=== PATIENT | male | born 1965 | race Caucasian/White ===

== ENCOUNTER → 2017-08-18 | Outpatient (CLI) | payer OTHER ==
[~2017-08-18] MED LIST: ATEN-100 PO; CHLO25CA PO; QUET1TAB67 PO; SERT100 PO
== END ==
LOC: CPRE 08:57
PROVIDERS: ATTEND Orthopaedic Surgery Sports Medicine
DX: M16.9 Osteoarthritis of hip, unspecified (principal)

== ENCOUNTER 2017-09-04 05:22 | Inpatient (IN) | payer OTHER ==
[~2017-09-04] VITALS: Ht 177.8 cm; Wt 92.7 kg
[~2017-09-04 05:22] MED LIST changes: -ATEN-100 PO; +ATEN50TA PO; +BACTOIN EACH NARE; -CHLO25CA PO; +DISU1TAB6 PO; +GABA600T PO; +GEMF600T PO; +MELO7.5T4 PO; +PRIL20TA2 PO; -QUET1TAB67 PO; +SERT-129 PO; -SERT100 PO; +TRAM50TA PO; +TRAZ50TA12 PO
[2017-09-04] MEDS ORDERED: METOPROLOL TARTRATE 25 MG TAB PO PRN (05:45)
[2017-09-04] MEDS ORDERED: SODIUM CHLORID 0.9% 500 ML IV PRN (05:45)
[2017-09-04] MEDS ORDERED: CHLORHEXIDINE GLUCONATE 2 % 1 PACK (2 CLOTHS) TOPICAL PRN (05:45)
[2017-09-04] MEDS ORDERED: POVIDONE IODINE 5% (ANTISEPSIS KIT) 4 APPLICATIONS EACH NARE PRN (05:45)
[2017-09-04] MEDS ORDERED: INSULIN HUMAN REGULAR 1,000 UNITS/10 ML VIAL SQ PRN (05:45)
[2017-09-04] MEDS ORDERED: LACTATED RINGER'S 1000 ML IV PRN (05:45)
[2017-09-04] MEDS ORDERED: GENTAMICIN SULFATE 80 MG/2 ML VIAL ONE (05:49)
[2017-09-04] MEDS ORDERED: POVIDONE IODINE 7.5% SCRUB 118 ML BOTTLE TOPICAL SCH (06:00)
[2017-09-04] MEDS ORDERED: VANCOMYCIN 1000 MG/NS 250 ML (for <70 kg) IV SCH ×2 (06:00)
[2017-09-04] MEDS ORDERED: ceFAZolin 2 GM PREMIX 50 ML IV SCH (06:00)
[2017-09-04] MEDS ORDERED: DEXAMETHASONE SOD PHOS 20 MG/5 ML VIAL IV SCH (06:00)
[2017-09-04] MEDS ORDERED: CHLORHEXIDINE GLUCONATE 4% SOLN 120 ML BTL TOPICAL SCH (06:00)
[2017-09-04] MEDS ORDERED: ACETAMINOPHEN 1000 MG/100 ML 100 ML IV ONE (06:33)
[2017-09-04] MEDS ORDERED: ENOX40P SQ (06:44)
[2017-09-04] MEDS ORDERED: ASPI81CH37 CHEW (06:44)
[2017-09-04] MEDS ORDERED: Post-op Orders (for Pharmacy) MISC XX ONE (06:45)
[2017-09-04] MEDS ORDERED: SODIUM CHLORIDE 0.9% FLUSH 5 ML FLUSH IVF PRN (06:45)
[2017-09-04] MEDS ORDERED: MORPHINE SULFATE 4 MG/ML INJ IV PUSH PRN (06:45)
[2017-09-04] MEDS ORDERED: HYDR-3288 PO (06:45)
[2017-09-04] MEDS ORDERED: TRANEXAMIC PERI-ARTICULAR 3,000 MG/NS 100 ML P-ARTICULR SCH ×2 (07:00)
[2017-09-04] MEDS ORDERED: TRANEXAMIC ACID IV SCH (07:00)
[2017-09-04] MEDS ORDERED: EXPAREL PERI-ARTICULAR INJECTION (TOTAL VOL. 60 ML) P-ARTICULR SCH ×2 (07:00)
[2017-09-04] MEDS ORDERED: SODIUM CHLORIDE 0.9% IV SCH (07:00)
[2017-09-04] MEDS ORDERED: BISACODYL 10 MG SUPP RECTAL PRN (08:00)
[2017-09-04] MEDS ORDERED: ONDANSETRON HCL 4 MG/2 ML VIAL IVP PRN (08:00)
[2017-09-04] MEDS ORDERED: ACETAMINOPHEN/HYDROcodone 325 MG/7.5 MG TAB PO PRN (08:00)
[2017-09-04] MEDS ORDERED: ZOLPIDEM TARTRATE 5 MG TAB PO PRN (08:00)
[2017-09-04] MEDS ORDERED: diphenhydrAMINE HCL 50 MG/ML VIAL IV PUSH PRN (08:00)
[2017-09-04] MEDS: SODIUM CHLORIDE 0.9% FLUSH 5 ML FLUSH IVF SCH ×2 (09:00→20:34)
[2017-09-04] MEDS ORDERED: GEMFIBROZIL 600 MG TAB PO SCH (09:00)
[2017-09-04] MEDS ORDERED: DISULFIRAM 250 MG PO SCH (09:00)
[2017-09-04] MEDS: ATENOLOL 50 MG TAB PO SCH (09:00)
[2017-09-04] MEDS: PANTOPRAZOLE SOD 20 MG DELAYED RELEASE TAB PO SCH (09:00)
[2017-09-04] MEDS: SERTRALINE HCL 100 MG TAB PO SCH (09:00)
--- NOTE | 2017-09-04 09:13 | MP ---
cc: MARICARMEN COLON DATE OF SURGERY 09/04/2017 PREOPERATIVE DIAGNOSIS Left hip osteoarthritis. POSTOPERATIVE DIAGNOSES Left hip osteoarthritis. PROCEDURE Left total hip arthroplasty. SURGEON Dr. Maricarmen Colon MOTOR VEHICLE ESCORT DRIVER Howard Jerry PA-C ANESTHESIA General. ESTIMATED BLOOD LOSS 200 cc COMPLICATIONS None. IMPLANTS USED DePuy Corail size 14 Press-Fit high offset femoral stem, size 54 solid pinnacle Gription cup, size 36 mm highly cross-linked neutral polyethylene liner, size 36 mm ceramic head, +12 neck. JUSTIFICATION The patient is a 52-year-old male with a history of severe end-stage osteoarthritis involving the left hip. He has severe disabling pain on standing, walking, ambulation with activities and severe pain at rest. He has failed greater than 3 months of nonoperative conservative treatment to include medications, therapy, ambulatory assistive aids, home exercise program, activity modification. The patient not overweight. X-rays of the left hip reveal severe end-stage [id number] osteoarthritis. There is joint space narrowing, subchondral sclerosis, subchondral cyst, osteophyte formation with superior subluxation. The patient was counseled as to the risks, benefits and alternatives to a total hip arthroplasty. The risks were discussed which include but limited to injury, infection damage to nerves, blood vessels, pain, stiffness, leg length discrepancies, fracture-dislocation, blood clots, pulmonary embolism. The patient's pain is severe; he favored the benefits over the risks. He did wish to proceed with surgery. PROCEDURE IN DETAIL Written consent was obtained. The patient was identified by name, placed supine. General anesthesia was administered as well as 2 grams of IV Ancef and 1 gram of IV vancomycin. The patient was carefully transferred to the [place] table. The right and left feet were placed in the padded traction boots. All bony prominences and pressure points were well padded. The left hip and left lower extremity were prepped and draped using isopropyl alcohol, Hibiclens solution and DuraPrep solution. After time-out was performed, a longitudinal incision was made over the anterolateral aspect of the left hip. The fascial layer was incised. Dissection was carried over tensor fascia niki, beneath the rectus femoris to allow exposure of the anterior hip capsule. A capsulotomy incision was performed. An oscillating saw was used to perform a femoral neck cut. The osteoarthritic femoral head and neck component was removed. The 10 blade scalpel was used to excise the labrum. Sequential reaming began at size 47 and was carried to size 54. Subsequently a solid [place] Gription cup was implanted in approximately 45 degrees of abduction and 10 degrees of anteversion. There was good purchase and fixation after insertion of the cup. A screw hole eliminator was placed followed by the neutral liner. The liner was impacted in place and tested for stability. Attention was turned to the femur where the leg was externally rotated, extended and adducted. The capsule was released off the inner surface the greater trochanter to allow for elevation and lateralization of the femur. A box cutting osteotome was used to gain entrance into the intramedullary canal of the femur. This was followed by canal finder and sequential broaching up to size 14. Calcar planer was used to plane the calcar. Trial head and neck combinations were evaluated and the final components implanted. With the current components the leg could achieve external rotation of 70 degrees in extension, all the way down to the ground without evidence of anterior instability. No evidence of impingement with passive range of motion of the hip and fluoroscopic imaging showed appropriate implantation of components. The surgical wound was thoroughly irrigated with sterile saline pulse lavage antibiotic impregnated solution. The fascial layer was closed with #1 Vicryl suture, the subcutaneous layer with 2-0 Vicryl suture. The skin was closed with Dermabold. Sterile dressings were applied. The patient tolerated the procedure well, no intraoperative complications noted. Howard Jerry, physician photography assistant certified, was present during the entire procedure to include patient positioning and the procedure itself. The medical necessity of a physician photography assistant was indicated in this case due to the complexity of the procedure. He assisted with appropriate manipulation of the leg and also retraction of muscle, tendon and neurovascular structures. He assisted with preparation of bone and also implementation of the prosthetic replacement. MD RYAN Camargo/MALIKA /8:46 AM 8:53 AM
--- NOTE | 2017-09-04 09:13 | MP ---
cc: MARICARMEN COLON DATE OF SURGERY 09/04/2017 PREOPERATIVE DIAGNOSIS Left hip osteoarthritis. POSTOPERATIVE DIAGNOSES Left hip osteoarthritis. PROCEDURE Left total hip arthroplasty. SURGEON Dr. Maricarmen Colon LIFT TEAM TECHNICIAN Howard Jerry PA-C ANESTHESIA General. ESTIMATED BLOOD LOSS 200 cc COMPLICATIONS None. IMPLANTS USED DePuy Corail size 14 Press-Fit high offset femoral stem, size 54 solid pinnacle Gription cup, size 36 mm highly cross-linked neutral polyethylene liner, size 36 mm ceramic head, +12 neck. JUSTIFICATION The patient is a 52-year-old male with a history of severe end-stage osteoarthritis involving the left hip. He has severe disabling pain on standing, walking, ambulation with activities and severe pain at rest. He has failed greater than 3 months of nonoperative conservative treatment to include medications, therapy, ambulatory assistive aids, home exercise program, activity modification. The patient not overweight. X-rays of the left hip reveal severe end-stage [id number]-cosb osteoarthritis. There is joint space narrowing, subchondral sclerosis, subchondral cyst, osteophyte formation with superior subluxation. The patient was counseled as to the risks, benefits and alternatives to a total hip arthroplasty. The risks were discussed which include but limited to injury, infection damage to nerves, blood vessels, pain, stiffness, leg length discrepancies, fracture-dislocation, blood clots, pulmonary embolism. The patient's pain is severe; he favored the benefits over the risks. He did wish to proceed with surgery. PROCEDURE IN DETAIL Written consent was obtained. The patient was identified by name, placed supine. General anesthesia was administered as well as 2 grams of IV Ancef and 1 gram of IV vancomycin. The patient was carefully transferred to the [place] table. The right and left feet were placed in the padded traction boots. All bony prominences and pressure points were well padded. The left hip and left lower extremity were prepped and draped using isopropyl alcohol, Hibiclens solution and DuraPrep solution. After time-out was performed, a longitudinal incision was made over the anterolateral aspect of the left hip. The fascial layer was incised. Dissection was carried over tensor fascia niki, beneath the rectus femoris to allow exposure of the anterior hip capsule. A capsulotomy incision was performed. An oscillating saw was used to perform a femoral neck cut. The osteoarthritic femoral head and neck component was removed. The 10 blade scalpel was used to excise the labrum. Sequential reaming began at size 47 and was carried to size 54. Subsequently a solid [place] Gription cup was implanted in approximately 45 degrees of abduction and 10 degrees of anteversion. There was good purchase and fixation after insertion of the cup. A screw hole eliminator was placed followed by the neutral liner. The liner was impacted in place and tested for stability. Attention was turned to the femur where the leg was externally rotated, extended and adducted. The capsule was released off the inner surface the greater trochanter to allow for elevation and lateralization of the femur. A box cutting osteotome was used to gain entrance into the intramedullary canal of the femur. This was followed by canal finder and sequential broaching up to size 14. Calcar planer was used to plane the calcar. Trial head and neck combinations were evaluated and the final components implanted. With the current components the leg could achieve external rotation of 70 degrees in extension, all the way down to the ground without evidence of anterior instability. No evidence of impingement with passive range of motion of the hip and fluoroscopic imaging showed appropriate implantation of components. The surgical wound was thoroughly irrigated with sterile saline pulse lavage antibiotic impregnated solution. The fascial layer was closed with #1 Vicryl suture, the subcutaneous layer with 2-0 Vicryl suture. The skin was closed with Dermabold. Sterile dressings were applied. The patient tolerated the procedure well, no intraoperative complications noted. Howard Jerry, physician assistant head cashier certified, was present during the entire procedure to include patient positioning and the procedure itself. The medical necessity of a physician assistant head cashier was indicated in this case due to the complexity of the procedure. He assisted with appropriate manipulation of the leg and also retraction of muscle, tendon and neurovascular structures. He assisted with preparation of bone and also implementation of the prosthetic replacement. MD RYAN Camargo/MALIKA /8:46 AM 8:53 AM
--- NOTE | 2017-09-04 09:13 | MP ---
cc: MARICARMEN COLON DATE OF SURGERY 09/04/2017 PREOPERATIVE DIAGNOSIS Left hip osteoarthritis. POSTOPERATIVE DIAGNOSES Left hip osteoarthritis. PROCEDURE Left total hip arthroplasty. SURGEON Dr. Maricarmen Colon BAND SAW RUNNER Howard Jerry PA-C ANESTHESIA General. ESTIMATED BLOOD LOSS 200 cc COMPLICATIONS None. IMPLANTS USED DePuy Corail size 14 Press-Fit high offset femoral stem, size 54 solid pinnacle Gription cup, size 36 mm highly cross-linked neutral polyethylene liner, size 36 mm ceramic head, +12 neck. JUSTIFICATION The patient is a 52-year-old male with a history of severe end-stage osteoarthritis involving the left hip. He has severe disabling pain on standing, walking, ambulation with activities and severe pain at rest. He has failed greater than 3 months of nonoperative conservative treatment to include medications, therapy, ambulatory assistive aids, home exercise program, activity modification. The patient not overweight. X-rays of the left hip reveal severe end-stage [id number] osteoarthritis. There is joint space narrowing, subchondral sclerosis, subchondral cyst, osteophyte formation with superior subluxation. The patient was counseled as to the risks, benefits and alternatives to a total hip arthroplasty. The risks were discussed which include but limited to injury, infection damage to nerves, blood vessels, pain, stiffness, leg length discrepancies, fracture-dislocation, blood clots, pulmonary embolism. The patient's pain is severe; he favored the benefits over the risks. He did wish to proceed with surgery. PROCEDURE IN DETAIL Written consent was obtained. The patient was identified by name, placed supine. General anesthesia was administered as well as 2 grams of IV Ancef and 1 gram of IV vancomycin. The patient was carefully transferred to the [place] table. The right and left feet were placed in the padded traction boots. All bony prominences and pressure points were well padded. The left hip and left lower extremity were prepped and draped using isopropyl alcohol, Hibiclens solution and DuraPrep solution. After time-out was performed, a longitudinal incision was made over the anterolateral aspect of the left hip. The fascial layer was incised. Dissection was carried over tensor fascia niki, beneath the rectus femoris to allow exposure of the anterior hip capsule. A capsulotomy incision was performed. An oscillating saw was used to perform a femoral neck cut. The osteoarthritic femoral head and neck component was removed. The 10 blade scalpel was used to excise the labrum. Sequential reaming began at size 47 and was carried to size 54. Subsequently a solid [place] Gription cup was implanted in approximately 45 degrees of abduction and 10 degrees of anteversion. There was good purchase and fixation after insertion of the cup. A screw hole eliminator was placed followed by the neutral liner. The liner was impacted in place and tested for stability. Attention was turned to the femur where the leg was externally rotated, extended and adducted. The capsule was released off the inner surface the greater trochanter to allow for elevation and lateralization of the femur. A box cutting osteotome was used to gain entrance into the intramedullary canal of the femur. This was followed by canal finder and sequential broaching up to size 14. Calcar planer was used to plane the calcar. Trial head and neck combinations were evaluated and the final components implanted. With the current components the leg could achieve external rotation of 70 degrees in extension, all the way down to the ground without evidence of anterior instability. No evidence of impingement with passive range of motion of the hip and fluoroscopic imaging showed appropriate implantation of components. The surgical wound was thoroughly irrigated with sterile saline pulse lavage antibiotic impregnated solution. The fascial layer was closed with #1 Vicryl suture, the subcutaneous layer with 2-0 Vicryl suture. The skin was closed with Dermabold. Sterile dressings were applied. The patient tolerated the procedure well, no intraoperative complications noted. Howard Jerry, physician gynecological assistant certified, was present during the entire procedure to include patient positioning and the procedure itself. The medical necessity of a physician gynecological assistant was indicated in this case due to the complexity of the procedure. He assisted with appropriate manipulation of the leg and also retraction of muscle, tendon and neurovascular structures. He assisted with preparation of bone and also implementation of the prosthetic replacement. MD RYAN Camargo/MALIKA /8:46 AM 8:53 AM
[2017-09-04] MEDS ORDERED: DO NOT ADM ANY ANTICOAGULANT DRUGS PRN (09:30)
[2017-09-04] MEDS: SODIUM CHLOR 0.9% 1000 ML INJ 1,000 ML IV SCH ×2 (09:33→18:00)
[2017-09-04] MEDS ORDERED: *morphine SULFATE 8 MG/ML PERIprocedure ONLY ONE (09:36)
--- NOTE | 2017-09-04 09:46 | RADRPT ---
EXAM DATE/TIME: 09/04/2017 07:26 [facility] COMPARISON: No previous studies available for comparison. INDICATIONS : Left total hip replacement. MEDICAL HISTORY : None. SURGICAL HISTORY : None. ENCOUNTER: Initial ACUITY: 1 day PAIN SCORE: Non-responsive. LOCATION: Left hip. FINDINGS: Examination of the hip demonstrates total hip arthroplasty in satisfactory position. The alignment is anatomic. CONCLUSION: Post surgical changes as above. John Lam MD on September 04, 2017 at 9:43 Board Certified Radiologist. This report was verified electronically.
--- NOTE | 2017-09-04 09:58 | RADRPT ---
EXAM DATE/TIME: 09/04/2017 09:17 [facility] COMPARISON: No previous studies available for comparison. INDICATIONS : Post op. MEDICAL HISTORY : None. SURGICAL HISTORY : Orif left hip ENCOUNTER: Initial ACUITY: 1 day PAIN SCORE: 5/10 LOCATION: Left anterior hip FINDINGS: The patient is status post a total hip arthroplasty with a bipolar prosthesis. Prosthesis is well-sea eren. Alignment is anatomic. A fracture is not appreciated. CONCLUSION: Anatomic alignment. Gabriel Garcia MD FACR Board Certified Radiologist. This report was verified electronically.
--- NOTE | 2017-09-04 09:58 | RADRPT ---
EXAM DATE/TIME: 09/04/2017 09:17 [facility] COMPARISON: No previous studies available for comparison. INDICATIONS : Post op. MEDICAL HISTORY : None. SURGICAL HISTORY : Orif left hip ENCOUNTER: Initial ACUITY: 1 day PAIN SCORE: 5/10 LOCATION: Left anterior hip FINDINGS: The patient is status post a total hip arthroplasty with a bipolar prosthesis. Prosthesis is well-sea eren. Alignment is anatomic. A fracture is not appreciated. CONCLUSION: Anatomic alignment. aGbriel Garcia MD FACR Board Certified Radiologist. This report was verified electronically.
[2017-09-04 10:15] VITALS: BP 125/77; PULSE 92; RESP 18; TEMP 96.4; O2SAT 97
--- NOTE | 2017-09-04 11:24 | PD.CONS ---
HPI Service [facility] Consult Requested By Dr. Orta Reason for Consult post-op medical management Primary Care Physician Soni Zayas MD Diagnoses: History of Present Illness This is a 52 year old male patient with a past medical history which includes HTN, borderline personality disorder and OA of left hip. Patient is post left total hip arthroplasty anterior approach with Dr. Orta 09/04/2017. We have been consulted for assistance with postoperative medical management. Patient evaluated reports tolerable postoperative pain left lower extremity offers no other specific complaints at this time. Patient denies chest pain, shortness of breath, nausea, vomiting, diarrhea, constipation, fevers or chills. Patient is able wiggle toes LLE. Review of Systems Constitutional: DENIES: Fatigue, Fever, Chills Eyes: DENIES: Diplopia, Vision loss, Double Vision Respiratory: DENIES: Cough, Sputum production, Shortness of breath Cardiovascular: DENIES: Chest pain, Palpitations, Dyspnea on Exertion, Lower Extremity Edema Gastrointestinal: DENIES: Abdominal pain, Constipation, Diarrhea Musculoskeletal: COMPLAINS OF: Joint pain, Stiffness, Joint Swelling (post op left hip) Neurologic: DENIES: Abnormal gait, Headache, Localized weakness, Speech Problems Psychiatric: DENIES: Anxiety, Confusion, Depression Past Family Social History Past Medical History HTN, borderline personality disorder, depression and OA of left hip ETOH abuse last use 2014 Past Surgical History Left total hip arthroplasty anterior approach with Dr. Orta 09/04/2017 Right inguinal hernia repair Lasik eye surgery tonsillectomy Reported Medications [place] (Hydrocodone-Acetaminophen) 7.5-325 mg Tab 1-2 Tab PO Q6H PRN Aspirin Low Dose (Aspirin) 81 Mg Chew 81 Mg CHEW BID 30 Days Lovenox Inj (Enoxaparin Sodium) 40 Mg/0.4 Ml Syr 40 Mg SQ DAILY Tramadol (Tramadol HCl) 50 Mg Tab 50 Mg PO Q8H PRN Bactroban Nasal Oint (Mupirocin Nasal Oint) 2% Oint 1 Applic EACH NARE BID For 5 days. Gabapentin 600 Mg Tab 600 Mg PO TID Trazodone (Trazodone HCl) 50 Mg Tab 50 Mg PO HS Prilosec (Omeprazole Magnesium) 20 Mg Tab 1 Tab PO DAILY Disulfiram 250 Mg Tab 250 Mg PO DAILY Atenolol 50 Mg Tab 50 Mg PO DAILY Sertraline (Sertraline HCl) 100 Mg Tab 100 Mg PO DAILY Gemfibrozil 600 Mg Tab 600 Mg PO DAILY Take 30 minutes prior to breakfast and dinner. Allergies: Coded Allergies: No Known Allergies (Verified , 09/04/17) Active Ordered Medications Current Medications Medications (Trade) Dose Ordered Sig/Mamta Route Start Time Stop Time Status Last Admin Lactated Ringer's 1,000 ml @ 30 mls/hr Q24H PRN IV 09/04/17 05:45 09/07/17 05:44 09/04/17 06:15 Sodium Chloride 500 ml @ 30 mls/hr [id number] PRN IV 09/04/17 05:45 09/07/17 05:44 (Lopressor) 25 mg PUMPER GAUGER PRN PO 09/04/17 05:45 09/07/17 05:44 (Betadine 5% Antisepsis Kit) 1 applic PUMPER GAUGER PRN EACH NARE 09/04/17 05:45 09/07/17 05:44 09/04/17 06:30 (Chlorhexidine 2% Cloth) 3 pack PUMPER GAUGER PRN TOPICAL 09/04/17 05:45 09/07/17 05:44 09/04/17 06:00 (NovoLIN R INJ) See Protocol Table ... PUMPER GAUGER PRN SQ 09/04/17 05:45 09/07/17 05:44 (Betadine 7.5% Scrub) 1 applic ONCE TOPICAL 09/04/17 06:00 09/07/17 05:59 (Hibiclens 4% Top Soln) 1 applic ONCE TOPICAL 09/04/17 06:00 09/07/17 05:59 09/04/17 06:00 Cefazolin Sodium/ Dextrose 50 ml @ 100 mls/hr PUMPER GAUGER IV 09/04/17 06:00 09/07/17 05:59 09/04/17 06:30 Vancomycin HCl 1000 mg/Sodium Chloride 250 ml @ 250 mls/hr PUMPER GAUGER IV 09/04/17 06:00 09/07/17 05:59 09/04/17 06:45 Tranexamic Acid 1327.5 mg/Sodium Chloride 113.275 ml @ 200 mls/ hr ONCE IV 09/04/17 07:00 09/04/17 13:00 09/04/17 07:02 Bupivacaine Liposome 20 ml/ Sodium Chloride 60 ml @ 120 mls/hr ONCE P-ARTICULR 09/04/17 07:00 09/04/17 13:00 09/04/17 07:31 Tranexamic Acid 3000 mg/Sodium Chloride 130 ml @ 260 mls/hr ONCE P-ARTICULR 09/04/17 07:00 09/04/17 13:00 09/04/17 07:31 (Decadron Inj) 10 mg PUMPER GAUGER IV 09/04/17 06:00 09/04/17 23:59 09/04/17 06:23 (Tenormin) 50 mg DAILY PO 09/04/17 09:00 (Neurontin) 600 mg TID PO 09/04/17 09:00 (Lopid) 600 mg DAILY PO 09/04/17 09:00 (Zoloft) 100 mg DAILY PO 09/04/17 09:00 (Desyrel) 50 mg HS PO 09/04/17 21:00 Patient Own Medication PT OWN MED: DISULFI... DAILY PO 09/04/17 09:00 Future Hold (Protonix) 20 mg DAILY PO 09/04/17 09:00 Sodium Chloride 1,000 ml @ 100 mls/hr Q10H IV 09/04/17 08:00 09/04/17 09:33 (NS Flush) 2 ml UNSCH PRN IVF 09/04/17 06:45 (NS Flush) 2 ml BID IVF 09/04/17 09:00 Cefazolin Sodium 1000 mg/Sodium Chloride 100 ml @ 200 mls/hr Q6H IV 09/04/17 12:00 09/05/17 00:29 (Lovenox Inj) 40 mg Q24H SQ 09/05/17 08:15 09/14/17 08:16 (Morphine Inj) 3 mg Q3H PRN IV PUSH 09/04/17 06:45 ([place] 7.5-325 Mg) 1 tab Q4H PRN PO 09/04/17 08:00 ([place] 7.5-325 Mg) 2 tab Q4H PRN PO 09/04/17 08:00 (Theragran M Tab) 1 tab BID PO 09/05/17 21:00 11/04/17 20:59 (Zofran Inj) 4 mg Q6H PRN IVP 09/04/17 08:00 (Colace) 100 mg BID PO 09/05/17 21:00 (Ambien) 5 mg HS PRN PO 09/04/17 08:00 (Dulcolax Supp) 10 mg DAILY PRN RECTAL 09/04/17 08:00 (Benadryl Inj) 25 mg Q6H PRN IV PUSH 09/04/17 08:00 Miscellaneous Information ALL NURSING DEPARTME... UNSCH PRN .XX 09/04/17 09:30 09/05/17 09:29 Family History Patient is adopted Social History hx of ETOH abuse last use 2014 denies tobacco use denies illicit drug use Physical Exam Vital Signs Vital Signs Date Time Temp Pulse Resp B/P (MAP) Pulse Ox O2 Delivery O2 Flow Rate FiO2 09/04/17 10:15 96.4 92 18 125/77 (93) 97 09/04/17 09:56 98.0 86 14 125/78 (94) 94 Room Air 09/04/17 09:45 85 15 124/76 (92) 94 Room Air 09/04/17 09:30 80 18 120/74 (89) 95 Room Air 09/04/17 09:15 97.9 84 20 126/81 (96) 98 Room Air 09/04/17 06:09 97.8 76 20 121/91 (101) 99 Physical Exam GENERAL: This is a well-nourished, well-developed patient, in no apparent distress. SKIN: post-op dressing left anterior hip dry and intact HEAD: Atraumatic. Normocephalic. No temporal or scalp tenderness. EYES: Extraocular motions intact. No scleral icterus. No injection or drainage. CARDIOVASCULAR: Regular rate and rhythm RESPIRATORY: Clear to auscultation. Breath sounds equal bilaterally. GASTROINTESTINAL: Abdomen soft, non-tender, nondistended. No hepato-splenomegaly , or palpable masses. No guarding. MUSCULOSKELETAL: Extremities without clubbing, cyanosis, or edema. No joint tenderness, effusion, or edema noted. No calf tenderness. Negative Homans sign bilaterally. NEUROLOGICAL: Awake and alert. Motor and sensory grossly within normal limit, with the exception of post-op LLE. Normal speech. Imaging Last Impressions Hip and Pelvis X-Ray 09/04/17 0642 Signed Impressions: Service Date/Time: Monday, September 04, 2017 09:17 - CONCLUSION: Anatomic alignment. Gabriel Garcia MD Hip X-Ray 09/04/17 0000 Signed Impressions: Service Date/Time: Monday, September 04, 2017 07:26 - CONCLUSION: Post surgical changes as above. John Lam MD Assessment and Plan Problem List: (1) Primary localized osteoarthrosis, lower leg ICD Codes: M17.10 - Unilateral primary osteoarthritis, unspecified knee Plan: OA left hip S/P left total hips arthroplasty 09/04/[address] Orta Patient on Lovenox for anticoagulation Pain medication as needed PT HTN Continue patient home Atenolol monitor trend GERD continue home Prilosec Borderline personality disorder Continue patient's home Sertraline and trazodone Hx of ETOH use continue home Disulfiram DVT prophylaxis with Lovenox Assessment and Plan Patient examined. Assessment and plan formulated with Amirah Drummond PA-C. I agree with the above. Amirah Drummond Sep 04, 2017 11:24 Camden Rosen MD Sep 04, 2017 14:16
--- NOTE | 2017-09-04 11:24 | PD.CONS ---
HPI Service [facility] Hospitalists Consult Requested By Dr. Orta Reason for Consult post-op medical management Primary Care Physician Soni Zayas MD Diagnoses: History of Present Illness This is a 52 year old male patient with a past medical history which includes HTN, borderline personality disorder and OA of left hip. Patient is post left total hip arthroplasty anterior approach with Dr. Orta 09/04/2017. We have been consulted for assistance with postoperative medical management. Patient evaluated reports tolerable postoperative pain left lower extremity offers no other specific complaints at this time. Patient denies chest pain, shortness of breath, nausea, vomiting, diarrhea, constipation, fevers or chills. Patient is able wiggle toes LLE. Review of Systems Constitutional: DENIES: Fatigue, Fever, Chills Eyes: DENIES: Diplopia, Vision loss, Double Vision Respiratory: DENIES: Cough, Sputum production, Shortness of breath Cardiovascular: DENIES: Chest pain, Palpitations, Dyspnea on Exertion, Lower Extremity Edema Gastrointestinal: DENIES: Abdominal pain, Constipation, Diarrhea Musculoskeletal: COMPLAINS OF: Joint pain, Stiffness, Joint Swelling (post op left hip) Neurologic: DENIES: Abnormal gait, Headache, Localized weakness, Speech Problems Psychiatric: DENIES: Anxiety, Confusion, Depression Past Family Social History Past Medical History HTN, borderline personality disorder, depression and OA of left hip ETOH abuse last use 2014 Past Surgical History Left total hip arthroplasty anterior approach with Dr. Orta 09/04/2017 Right inguinal hernia repair Lasik eye surgery tonsillectomy Reported Medications [place] (Hydrocodone-Acetaminophen) 7.5-325 mg Tab 1-2 Tab PO Q6H PRN Aspirin Low Dose (Aspirin) 81 Mg Chew 81 Mg CHEW BID 30 Days Lovenox Inj (Enoxaparin Sodium) 40 Mg/0.4 Ml Syr 40 Mg SQ DAILY Tramadol (Tramadol HCl) 50 Mg Tab 50 Mg PO Q8H PRN Bactroban Nasal Oint (Mupirocin Nasal Oint) 2% Oint 1 Applic EACH NARE BID For 5 days. Gabapentin 600 Mg Tab 600 Mg PO TID Trazodone (Trazodone HCl) 50 Mg Tab 50 Mg PO HS Prilosec (Omeprazole Magnesium) 20 Mg Tab 1 Tab PO DAILY Disulfiram 250 Mg Tab 250 Mg PO DAILY Atenolol 50 Mg Tab 50 Mg PO DAILY Sertraline (Sertraline HCl) 100 Mg Tab 100 Mg PO DAILY Gemfibrozil 600 Mg Tab 600 Mg PO DAILY Take 30 minutes prior to breakfast and dinner. Allergies: Coded Allergies: No Known Allergies (Verified , 09/04/17) Active Ordered Medications Current Medications Medications (Trade) Dose Ordered Sig/Mamta Route Start Time Stop Time Status Last Admin Lactated Ringer's 1,000 ml @ 30 mls/hr Q24H PRN IV 09/04/17 05:45 09/07/17 05:44 09/04/17 06:15 Sodium Chloride 500 ml @ 30 mls/hr [id number] PRN IV 09/04/17 05:45 09/07/17 05:44 (Lopressor) 25 mg PARTNERSHIP MANAGER PRN PO 09/04/17 05:45 09/07/17 05:44 (Betadine 5% Antisepsis Kit) 1 applic PARTNERSHIP MANAGER PRN EACH NARE 09/04/17 05:45 09/07/17 05:44 09/04/17 06:30 (Chlorhexidine 2% Cloth) 3 pack PARTNERSHIP MANAGER PRN TOPICAL 09/04/17 05:45 09/07/17 05:44 09/04/17 06:00 (NovoLIN R INJ) See Protocol Table ... PARTNERSHIP MANAGER PRN SQ 09/04/17 05:45 09/07/17 05:44 (Betadine 7.5% Scrub) 1 applic ONCE TOPICAL 09/04/17 06:00 09/07/17 05:59 (Hibiclens 4% Top Soln) 1 applic ONCE TOPICAL 09/04/17 06:00 09/07/17 05:59 09/04/17 06:00 Cefazolin Sodium/ Dextrose 50 ml @ 100 mls/hr PARTNERSHIP MANAGER IV 09/04/17 06:00 09/07/17 05:59 09/04/17 06:30 Vancomycin HCl 1000 mg/Sodium Chloride 250 ml @ 250 mls/hr PARTNERSHIP MANAGER IV 09/04/17 06:00 09/07/17 05:59 09/04/17 06:45 Tranexamic Acid 1327.5 mg/Sodium Chloride 113.275 ml @ 200 mls/ hr ONCE IV 09/04/17 07:00 09/04/17 13:00 09/04/17 07:02 Bupivacaine Liposome 20 ml/ Sodium Chloride 60 ml @ 120 mls/hr ONCE P-ARTICULR 09/04/17 07:00 09/04/17 13:00 09/04/17 07:31 Tranexamic Acid 3000 mg/Sodium Chloride 130 ml @ 260 mls/hr ONCE P-ARTICULR 09/04/17 07:00 09/04/17 13:00 09/04/17 07:31 (Decadron Inj) 10 mg PARTNERSHIP MANAGER IV 09/04/17 06:00 09/04/17 23:59 09/04/17 06:23 (Tenormin) 50 mg DAILY PO 09/04/17 09:00 (Neurontin) 600 mg TID PO 09/04/17 09:00 (Lopid) 600 mg DAILY PO 09/04/17 09:00 (Zoloft) 100 mg DAILY PO 09/04/17 09:00 (Desyrel) 50 mg HS PO 09/04/17 21:00 Patient Own Medication PT OWN MED: DISULFI... DAILY PO 09/04/17 09:00 Future Hold (Protonix) 20 mg DAILY PO 09/04/17 09:00 Sodium Chloride 1,000 ml @ 100 mls/hr Q10H IV 09/04/17 08:00 09/04/17 09:33 (NS Flush) 2 ml UNSCH PRN IVF 09/04/17 06:45 (NS Flush) 2 ml BID IVF 09/04/17 09:00 Cefazolin Sodium 1000 mg/Sodium Chloride 100 ml @ 200 mls/hr Q6H IV 09/04/17 12:00 09/05/17 00:29 (Lovenox Inj) 40 mg Q24H SQ 09/05/17 08:15 09/14/17 08:16 (Morphine Inj) 3 mg Q3H PRN IV PUSH 09/04/17 06:45 ([place] 7.5-325 Mg) 1 tab Q4H PRN PO 09/04/17 08:00 ([place] 7.5-325 Mg) 2 tab Q4H PRN PO 09/04/17 08:00 (Theragran M Tab) 1 tab BID PO 09/05/17 21:00 11/04/17 20:59 (Zofran Inj) 4 mg Q6H PRN IVP 09/04/17 08:00 (Colace) 100 mg BID PO 09/05/17 21:00 (Ambien) 5 mg HS PRN PO 09/04/17 08:00 (Dulcolax Supp) 10 mg DAILY PRN RECTAL 09/04/17 08:00 (Benadryl Inj) 25 mg Q6H PRN IV PUSH 09/04/17 08:00 Miscellaneous Information ALL NURSING DEPARTME... UNSCH PRN .XX 09/04/17 09:30 09/05/17 09:29 Family History Patient is adopted Social History hx of ETOH abuse last use 2014 denies tobacco use denies illicit drug use Physical Exam Vital Signs Vital Signs Date Time Temp Pulse Resp B/P (MAP) Pulse Ox O2 Delivery O2 Flow Rate FiO2 09/04/17 10:15 96.4 92 18 125/77 (93) 97 09/04/17 09:56 98.0 86 14 125/78 (94) 94 Room Air 09/04/17 09:45 85 15 124/76 (92) 94 Room Air 09/04/17 09:30 80 18 120/74 (89) 95 Room Air 09/04/17 09:15 97.9 84 20 126/81 (96) 98 Room Air 09/04/17 06:09 97.8 76 20 121/91 (101) 99 Physical Exam GENERAL: This is a well-nourished, well-developed patient, in no apparent distress. SKIN: post-op dressing left anterior hip dry and intact HEAD: Atraumatic. Normocephalic. No temporal or scalp tenderness. EYES: Extraocular motions intact. No scleral icterus. No injection or drainage. CARDIOVASCULAR: Regular rate and rhythm RESPIRATORY: Clear to auscultation. Breath sounds equal bilaterally. GASTROINTESTINAL: Abdomen soft, non-tender, nondistended. No hepato-splenomegaly , or palpable masses. No guarding. MUSCULOSKELETAL: Extremities without clubbing, cyanosis, or edema. No joint tenderness, effusion, or edema noted. No calf tenderness. Negative Homans sign bilaterally. NEUROLOGICAL: Awake and alert. Motor and sensory grossly within normal limit, with the exception of post-op LLE. Normal speech. Imaging Last Impressions Hip and Pelvis X-Ray 09/04/17 0642 Signed Impressions: Service Date/Time: Monday, September 04, 2017 09:17 - CONCLUSION: Anatomic alignment. Gabriel Garcia MD Hip X-Ray 09/04/17 0000 Signed Impressions: Service Date/Time: Monday, September 04, 2017 07:26 - CONCLUSION: Post surgical changes as above. John Lam MD Assessment and Plan Problem List: (1) Primary localized osteoarthrosis, lower leg ICD Codes: M17.10 - Unilateral primary osteoarthritis, unspecified knee Plan: OA left hip S/P left total hips arthroplasty 09/04/[address] Orta Patient on Lovenox for anticoagulation Pain medication as needed PT HTN Continue patient home Atenolol monitor trend GERD continue home Prilosec Borderline personality disorder Continue patient's home Sertraline and trazodone Hx of ETOH use continue home Disulfiram DVT prophylaxis with Lovenox Assessment and Plan Patient examined. Assessment and plan formulated with Amirah Drummond PA-C. I agree with the above. Amirah Drummond Sep 04, 2017 11:24 Camden Rosen MD Sep 04, 2017 14:16
--- NOTE | 2017-09-04 11:24 | PD.CONS ---
HPI Service [facility] Hospitalists Consult Requested By Dr. Orta Reason for Consult post-op medical management Primary Care Physician Soni Zayas MD Diagnoses: History of Present Illness This is a 52 year old male patient with a past medical history which includes HTN, borderline personality disorder and OA of left hip. Patient is post left total hip arthroplasty anterior approach with Dr. Orta 09/04/2017. We have been consulted for assistance with postoperative medical management. Patient evaluated reports tolerable postoperative pain left lower extremity offers no other specific complaints at this time. Patient denies chest pain, shortness of breath, nausea, vomiting, diarrhea, constipation, fevers or chills. Patient is able wiggle toes LLE. Review of Systems Constitutional: DENIES: Fatigue, Fever, Chills Eyes: DENIES: Diplopia, Vision loss, Double Vision Respiratory: DENIES: Cough, Sputum production, Shortness of breath Cardiovascular: DENIES: Chest pain, Palpitations, Dyspnea on Exertion, Lower Extremity Edema Gastrointestinal: DENIES: Abdominal pain, Constipation, Diarrhea Musculoskeletal: COMPLAINS OF: Joint pain, Stiffness, Joint Swelling (post op left hip) Neurologic: DENIES: Abnormal gait, Headache, Localized weakness, Speech Problems Psychiatric: DENIES: Anxiety, Confusion, Depression Past Family Social History Past Medical History HTN, borderline personality disorder, depression and OA of left hip ETOH abuse last use 2014 Past Surgical History Left total hip arthroplasty anterior approach with Dr. Orta 09/04/2017 Right inguinal hernia repair Lasik eye surgery tonsillectomy Reported Medications [place] (Hydrocodone-Acetaminophen) 7.5-325 mg Tab 1-2 Tab PO Q6H PRN Aspirin Low Dose (Aspirin) 81 Mg Chew 81 Mg CHEW BID 30 Days Lovenox Inj (Enoxaparin Sodium) 40 Mg/0.4 Ml Syr 40 Mg SQ DAILY Tramadol (Tramadol HCl) 50 Mg Tab 50 Mg PO Q8H PRN Bactroban Nasal Oint (Mupirocin Nasal Oint) 2% Oint 1 Applic EACH NARE BID For 5 days. Gabapentin 600 Mg Tab 600 Mg PO TID Trazodone (Trazodone HCl) 50 Mg Tab 50 Mg PO HS Prilosec (Omeprazole Magnesium) 20 Mg Tab 1 Tab PO DAILY Disulfiram 250 Mg Tab 250 Mg PO DAILY Atenolol 50 Mg Tab 50 Mg PO DAILY Sertraline (Sertraline HCl) 100 Mg Tab 100 Mg PO DAILY Gemfibrozil 600 Mg Tab 600 Mg PO DAILY Take 30 minutes prior to breakfast and dinner. Allergies: Coded Allergies: No Known Allergies (Verified , 09/04/17) Active Ordered Medications Current Medications Medications (Trade) Dose Ordered Sig/Mamta Route Start Time Stop Time Status Last Admin Lactated Ringer's 1,000 ml @ 30 mls/hr Q24H PRN IV 09/04/17 05:45 09/07/17 05:44 09/04/17 06:15 Sodium Chloride 500 ml @ 30 mls/hr [id number] PRN IV 09/04/17 05:45 09/07/17 05:44 (Lopressor) 25 mg NATURAL RESOURCES EXTENSION EDUCATOR PRN PO 09/04/17 05:45 09/07/17 05:44 (Betadine 5% Antisepsis Kit) 1 applic NATURAL RESOURCES EXTENSION EDUCATOR PRN EACH NARE 09/04/17 05:45 09/07/17 05:44 09/04/17 06:30 (Chlorhexidine 2% Cloth) 3 pack NATURAL RESOURCES EXTENSION EDUCATOR PRN TOPICAL 09/04/17 05:45 09/07/17 05:44 09/04/17 06:00 (NovoLIN R INJ) See Protocol Table ... NATURAL RESOURCES EXTENSION EDUCATOR PRN SQ 09/04/17 05:45 09/07/17 05:44 (Betadine 7.5% Scrub) 1 applic ONCE TOPICAL 09/04/17 06:00 09/07/17 05:59 (Hibiclens 4% Top Soln) 1 applic ONCE TOPICAL 09/04/17 06:00 09/07/17 05:59 09/04/17 06:00 Cefazolin Sodium/ Dextrose 50 ml @ 100 mls/hr NATURAL RESOURCES EXTENSION EDUCATOR IV 09/04/17 06:00 09/07/17 05:59 09/04/17 06:30 Vancomycin HCl 1000 mg/Sodium Chloride 250 ml @ 250 mls/hr NATURAL RESOURCES EXTENSION EDUCATOR IV 09/04/17 06:00 09/07/17 05:59 09/04/17 06:45 Tranexamic Acid 1327.5 mg/Sodium Chloride 113.275 ml @ 200 mls/ hr ONCE IV 09/04/17 07:00 09/04/17 13:00 09/04/17 07:02 Bupivacaine Liposome 20 ml/ Sodium Chloride 60 ml @ 120 mls/hr ONCE P-ARTICULR 09/04/17 07:00 09/04/17 13:00 09/04/17 07:31 Tranexamic Acid 3000 mg/Sodium Chloride 130 ml @ 260 mls/hr ONCE P-ARTICULR 09/04/17 07:00 09/04/17 13:00 09/04/17 07:31 (Decadron Inj) 10 mg NATURAL RESOURCES EXTENSION EDUCATOR IV 09/04/17 06:00 09/04/17 23:59 09/04/17 06:23 (Tenormin) 50 mg DAILY PO 09/04/17 09:00 (Neurontin) 600 mg TID PO 09/04/17 09:00 (Lopid) 600 mg DAILY PO 09/04/17 09:00 (Zoloft) 100 mg DAILY PO 09/04/17 09:00 (Desyrel) 50 mg HS PO 09/04/17 21:00 Patient Own Medication PT OWN MED: DISULFI... DAILY PO 09/04/17 09:00 Future Hold (Protonix) 20 mg DAILY PO 09/04/17 09:00 Sodium Chloride 1,000 ml @ 100 mls/hr Q10H IV 09/04/17 08:00 09/04/17 09:33 (NS Flush) 2 ml UNSCH PRN IVF 09/04/17 06:45 (NS Flush) 2 ml BID IVF 09/04/17 09:00 Cefazolin Sodium 1000 mg/Sodium Chloride 100 ml @ 200 mls/hr Q6H IV 09/04/17 12:00 09/05/17 00:29 (Lovenox Inj) 40 mg Q24H SQ 09/05/17 08:15 09/14/17 08:16 (Morphine Inj) 3 mg Q3H PRN IV PUSH 09/04/17 06:45 ([place] 7.5-325 Mg) 1 tab Q4H PRN PO 09/04/17 08:00 ([place] 7.5-325 Mg) 2 tab Q4H PRN PO 09/04/17 08:00 (Theragran M Tab) 1 tab BID PO 09/05/17 21:00 11/04/17 20:59 (Zofran Inj) 4 mg Q6H PRN IVP 09/04/17 08:00 (Colace) 100 mg BID PO 09/05/17 21:00 (Ambien) 5 mg HS PRN PO 09/04/17 08:00 (Dulcolax Supp) 10 mg DAILY PRN RECTAL 09/04/17 08:00 (Benadryl Inj) 25 mg Q6H PRN IV PUSH 09/04/17 08:00 Miscellaneous Information ALL NURSING DEPARTME... UNSCH PRN .XX 09/04/17 09:30 09/05/17 09:29 Family History Patient is adopted Social History hx of ETOH abuse last use 2014 denies tobacco use denies illicit drug use Physical Exam Vital Signs Vital Signs Date Time Temp Pulse Resp B/P (MAP) Pulse Ox O2 Delivery O2 Flow Rate FiO2 09/04/17 10:15 96.4 92 18 125/77 (93) 97 09/04/17 09:56 98.0 86 14 125/78 (94) 94 Room Air 09/04/17 09:45 85 15 124/76 (92) 94 Room Air 09/04/17 09:30 80 18 120/74 (89) 95 Room Air 09/04/17 09:15 97.9 84 20 126/81 (96) 98 Room Air 09/04/17 06:09 97.8 76 20 121/91 (101) 99 Physical Exam GENERAL: This is a well-nourished, well-developed patient, in no apparent distress. SKIN: post-op dressing left anterior hip dry and intact HEAD: Atraumatic. Normocephalic. No temporal or scalp tenderness. EYES: Extraocular motions intact. No scleral icterus. No injection or drainage. CARDIOVASCULAR: Regular rate and rhythm RESPIRATORY: Clear to auscultation. Breath sounds equal bilaterally. GASTROINTESTINAL: Abdomen soft, non-tender, nondistended. No hepato-splenomegaly , or palpable masses. No guarding. MUSCULOSKELETAL: Extremities without clubbing, cyanosis, or edema. No joint tenderness, effusion, or edema noted. No calf tenderness. Negative Homans sign bilaterally. NEUROLOGICAL: Awake and alert. Motor and sensory grossly within normal limit, with the exception of post-op LLE. Normal speech. Imaging Last Impressions Hip and Pelvis X-Ray 09/04/17 0642 Signed Impressions: Service Date/Time: Monday, September 04, 2017 09:17 - CONCLUSION: Anatomic alignment. Gabriel Garcia MD Hip X-Ray 09/04/17 0000 Signed Impressions: Service Date/Time: Monday, September 04, 2017 07:26 - CONCLUSION: Post surgical changes as above. John Lam MD Assessment and Plan Problem List: (1) Primary localized osteoarthrosis, lower leg ICD Codes: M17.10 - Unilateral primary osteoarthritis, unspecified knee Plan: OA left hip S/P left total hips arthroplasty 09/04/[address] Orta Patient on Lovenox for anticoagulation Pain medication as needed PT HTN Continue patient home Atenolol monitor trend GERD continue home Prilosec Borderline personality disorder Continue patient's home Sertraline and trazodone Hx of ETOH use continue home Disulfiram DVT prophylaxis with Lovenox Assessment and Plan Patient examined. Assessment and plan formulated with Amirah Drummond PA-C. I agree with the above. Amirah Drummond Sep 04, 2017 11:24 Camden Rosen MD Sep 04, 2017 14:16
[2017-09-04 11:36] VITALS: O2SAT 96
[2017-09-04] MEDS: GABAPENTIN 300 MG CAP PO SCH ×2 (12:05→17:26)
[2017-09-04 16:00] VITALS: BP 116/75; PULSE 94; RESP 18; TEMP 96.7; O2SAT 98
[2017-09-04] MEDS: ACETAMINOPHEN/HYDROcodone 325 MG/7.5 MG TAB PO PRN ×2 (17:27→21:48)
[2017-09-04 20:00] VITALS: BP 98/57; PULSE 93; RESP 18; TEMP 98; O2SAT 97
[2017-09-04] MEDS ORDERED: traZODone HCL 50 MG TAB PO SCH (21:00)
[2017-09-05 00:07] VITALS: BP 112/64; PULSE 90; RESP 18; TEMP 97.8; O2SAT 100
[2017-09-05] MEDS: SODIUM CHLOR 0.9% 1000 ML INJ 1,000 ML IV SCH (03:03)
[2017-09-05 04:06] VITALS: BP 102/59; PULSE 89; RESP 18; TEMP 97.3; O2SAT 99
[2017-09-05] MEDS: ACETAMINOPHEN/HYDROcodone 325 MG/7.5 MG TAB PO PRN ×3 (04:50→13:20)
[2017-09-05 06:39] LABS: HEMATOCRIT 29.7 % (39.0-51.0); HEMOGLOBIN 10.1 GM/DL (13.0-17.0); MEAN CELL VOLUME 89.7 FL (80.0-100.0); MEAN CORPUSCULAR HEMOGLOBIN 30.6 PG (27.0-34.0); MEAN CORPUSCULAR HGB CONC 34.1 % (32.0-36.0); MEAN PLATELET VOLUME 8.4 FL (7.0-11.0); PLATELET COUNT 195 TH/MM3 (150-450); RED BLOOD COUNT 3.31 MIL/MM3 (4.50-5.90); RED CELL DISTRIBUTION WIDTH 13.8 % (11.6-17.2); WHITE BLOOD COUNT 7.1 TH/MM3 (4.0-11.0)
[2017-09-05] MEDS: ATENOLOL 50 MG TAB PO SCH (07:21)
[2017-09-05] MEDS: PANTOPRAZOLE SOD 20 MG DELAYED RELEASE TAB PO SCH (07:21)
[2017-09-05] MEDS: GABAPENTIN 300 MG CAP PO SCH (07:21)
[2017-09-05] MEDS: SERTRALINE HCL 100 MG TAB PO SCH (07:21)
[2017-09-05 08:00] VITALS: BP 111/63; PULSE 90; RESP 17; TEMP 97.9; O2SAT 97
[2017-09-05] MEDS ORDERED: ENOXAPARIN SODIUM 40 MG/0.4 ML SYRINGE SQ SCH (08:15)
--- NOTE | 2017-09-05 08:22 | PD.ORT.PN ---
Subjective Post Op Day #: 1 Subjective Remarks doing well. pain controlled. thigh sore. Objective Vitals Vital Signs Date Time Temp Pulse Resp B/P (MAP) Pulse Ox O2 Delivery O2 Flow Rate FiO2 09/05/17 08:00 97.9 90 17 111/63 (79) 97 09/05/17 05:59 19 09/05/17 04:06 97.3 89 18 102/59 (73) 99 09/05/17 01:37 Room Air 09/05/17 00:07 97.8 90 18 112/64 (80) 100 09/04/17 20:00 98.0 93 18 98/57 (71) 97 09/04/17 16:00 96.7 94 18 116/75 (89) 98 09/04/17 11:36 96 09/04/17 10:15 96.4 92 18 125/77 (93) 97 09/04/17 09:56 98.0 86 14 125/78 (94) 94 Room Air 09/04/17 09:45 85 15 124/76 (92) 94 Room Air 09/04/17 09:30 80 18 120/74 (89) 95 Room Air 09/04/17 09:15 97.9 84 20 126/81 (96) 98 Room Air I/O 09/04/17 09/04/17 09/04/17 09/05/17 09/05/17 09/05/17 07:00 15:00 23:00 07:00 15:00 23:00 Intake Total 1650 ml 480 ml 340 ml Output Total 450 ml Balance 1200 ml 480 ml 340 ml Intake Oral 600 ml 480 ml 240 ml IV Total 1050 ml 100 ml Output Urine Total 350 ml Estimated Blood Loss 100 ml # Voids 1 6 2 # Bowel Movements 1 1 0 Result Diagram: 09/05/17 0602 Objective Remarks in bed, nad dressing c/d/i neg homans nvi Assessment & Plan Ortho Post Op Day #: 1 Problem List: Assessment and Plan s/p L CATHY wbat daily dressing changes lovenox d/c planning home with [facility] and pt - cleared today rx in chart f/up dr. felipe 2 weeks Nomi Jerry Sep 05, 2017 08:22
--- NOTE | 2017-09-05 08:24 | HHI.FF ---
Face to Face Verification Diagnosis: (1) Primary localized osteoarthrosis, lower leg Physical Therapy Gait training, Safety evaluation, Transfer training, bed to chair Hip: Total hip, Protocol: Left Left LE Weight Bearing: WB as tolerated Nursing RN: 3 days/week x 2 weeks Nursing: Saeed teaching, Dressing changes Dressing Changes: Daily dressing change I have seen patient Socrates Mcghee on 09/05/17. My clinical findings support the need for the requested home health care services because: Limited ability to care for self High risk of falls I certify that my clinical findings support that this patient is homebound because: Post-op weakness Unsteady gait/balance Nomi Jerry Sep 05, 2017 08:24
--- NOTE | 2017-09-05 08:24 | HHI.DCPOC ---
Discharge Care Plan Diagnosis: (1) Primary localized osteoarthrosis, lower leg Your Health Problems Are: Difficulty with ADL Goals to Promote Your Health * To prevent worsening of your condition and complications * To maintain your health at the optimal level Directions to Meet Your Goals Take your medications as prescribed Follow your dietary instruction Follow activity as directed Keep your appointments as scheduled Take your immunizations and boosters as scheduled If your symptoms worsen call your PCP, if no PCP go to Urgent Care Center or Emergency Room Smoking is Dangerous to Your Health. Avoid second hand smoke Call the 24-hour hour crisis hotline for domestic abuse at Nomi Jerry Sep 05, 2017 08:24
--- NOTE | 2017-09-05 08:24 | HHI.DCPOC ---
Discharge Care Plan Diagnosis: (1) Primary localized osteoarthrosis, lower leg Your Health Problems Are: Difficulty with ADL Goals to Promote Your Health * To prevent worsening of your condition and complications * To maintain your health at the optimal level Directions to Meet Your Goals Take your medications as prescribed Follow your dietary instruction Follow activity as directed Keep your appointments as scheduled Take your immunizations and boosters as scheduled If your symptoms worsen call your PCP, if no PCP go to Urgent Care Center or Emergency Room Smoking is Dangerous to Your Health. Avoid second hand smoke Call the 24-hour hour crisis hotline for domestic abuse at Nomi Jerry Sep 05, 2017 08:24
--- NOTE | 2017-09-05 08:24 | HHI.DCPOC ---
Discharge Care Plan Diagnosis: (1) Primary localized osteoarthrosis, lower leg Your Health Problems Are: Difficulty with ADL Goals to Promote Your Health * To prevent worsening of your condition and complications * To maintain your health at the optimal level Directions to Meet Your Goals Take your medications as prescribed Follow your dietary instruction Follow activity as directed Keep your appointments as scheduled Take your immunizations and boosters as scheduled If your symptoms worsen call your PCP, if no PCP go to Urgent Care Center or Emergency Room Smoking is Dangerous to Your Health. Avoid second hand smoke Call the 24-hour hour crisis hotline for domestic abuse at Nomi Jerry Sep 05, 2017 08:24
[2017-09-05] MEDS ORDERED: COMMODE 3-IN-11 MIS (08:26)
[2017-09-05] MEDS ORDERED: WALKER WHEELS/F1 MIS (08:26)
[2017-09-05 10:17] VITALS: O2SAT 98
[2017-09-05 11:53] VITALS: BP 106/57; PULSE 92; RESP 18; TEMP 97.6; O2SAT 98
[2017-09-05] MEDS ORDERED: DOCUSATE SODIUM 100 MG CAP PO SCH (21:00)
[2017-09-05] MEDS ORDERED: MULTIVITAMINS/MINERALS THERAPEUTIC TAB PO SCH (21:00)
--- NOTE | 2017-09-06 09:35 | MD ---
cc: MARICARMEN COLON M.D. ADMISSION DATE: 09/04/2017 DISCHARGE DATE: 09/05/2017 ADMISSION DIAGNOSIS Severe degenerative osteoarthritis left hip. DISCHARGE DIAGNOSIS Severe degenerative osteoarthritis left hip. HISTORY OF PRESENT ILLNESS Mr. Mcghee is a 52-year-old male who presented to the [facility] for evaluation by Dr. Maricarmen Colon regarding his severe and progressive left hip pain. The patient states the pain is a severe, constant aching sensation aggravated by weightbearing activities. The pain is inhibiting his ability to ambulate safely. He states he has no alleviating factors at this point in time although he has tried medications, assistive devices, physical therapy, home exercises and steroid injection without relief of symptoms. He does have x-ray evidence of severe degenerative osteoarthritis of left hip. While in the office the patient was counseled as to his diagnosis and treatment options, the risks, benefits and indications all were all discussed. The patient elected to proceed with surgical intervention to include a left total hip arthroplasty. DATE OF SURGERY 09/04/2017 PROCEDURE PERFORMED Left total hip arthroplasty anterior approach. POSTOP After surgery the patient was admitted to [facility] where he received appropriate medical management, pain control, DVT prophylaxis as well as physical therapy. DISCHARGE Once being discharged from the hospital the patient was cleared to go home where he will receive home health care and home physical therapy. CONDITION ON DISCHARGE He is in stable condition. DISCHARGE INSTRUCTIONS He may weight-bear as tolerated with anterior hip precautions. He is to receive daily dressing changes and has been instructed on appropriate wound care management. DISCHARGE MEDICATIONS He has been provided prescriptions for pain control as well as DVT prophylaxis medication. FOLLOWUP He has also been provided a follow-up appointment in approximately 2 weeks from the date of surgery. The patient has asked appropriate questions which have been answered. The patient has been discharged. Dictated by: Howard Jerry PA-C Maricarmen Colon MD JWM/MALIKA /8:03 AM /9:33 AM
== END 2017-09-05 15:16 | disposition home health service (06) | DRG 470 ==
LOC: HSDI 05:22 → N06A 10:05
PROVIDERS: ADMIT Orthopaedic Surgery Sports Medicine; ATTEND Orthopaedic Surgery Sports Medicine
PROC: 0SRB04A Replacement of Left Hip Joint with Ceramic on Polyethylene Synthetic Substitute, Uncemented, Open Approach (ICD-10-PCS; principal; 2017-09-04 07:31)
DX: M16.12 Unilateral primary osteoarthritis, left hip (principal); I10 Essential (primary) hypertension; F60.3 Borderline personality disorder; K21.9 Gastro-esophageal reflux disease without esophagitis
CPT/HCPCS: 73502; 76000; 85027; 86850; 86900; 86901; 94150; C9290; J0131; J0690; J1100; J1580; J1650; J2270; J3370; J7030; J7050; J7120

== ENCOUNTER 2017-09-13 12:57 | Emergency (ER) | payer OTHER ==
[~2017-09-13] VITALS: Ht 177.8 cm; Wt 84.0 kg
[~2017-09-13 12:57] MED LIST changes: +ASPI81CH6 CHEW; -BACTOIN EACH NARE; +COMMODE 3-IN-11 MIS; +ENOX40P SQ; +HYDR-3288 PO; -MELO7.5T4 PO; -TRAM50TA PO; +WALKER WHEELS/F1 MIS
[2017-09-13 12:58] VITALS: BP 153/99; PULSE 61; RESP 16; TEMP 99.1; O2SAT 98
[2017-09-13 14:02] LABS: AUTOMATED NEUTROPHIL # 6.5 TH/MM3 (1.8-7.7); BASOPHIL # 0.1 TH/MM3 (0-0.2); BASOPHIL % 0.7 % (0.0-2.0); EOSINOPHIL # 0.3 TH/MM3 (0-0.4); HEMATOCRIT 31.6 % (39.0-51.0); HEMO FLAGS DIFF FINAL; LYMPH % 15.9 % (9.0-44.0); LYMPHOCYTE # 1.4 TH/MM3 (1.0-4.8); MEAN CELL VOLUME 90.5 FL (80.0-100.0); MEAN CORPUSCULAR HEMOGLOBIN 30.1 PG (27.0-34.0); MEAN CORPUSCULAR HGB CONC 33.2 % (32.0-36.0); NEUT % 74.4 % (16.0-70.0); PLATELET COUNT 342 TH/MM3 (150-450); RED BLOOD COUNT 3.49 MIL/MM3 (4.50-5.90); RED CELL DISTRIBUTION WIDTH 13.2 % (11.6-17.2); WHITE BLOOD COUNT 8.7 TH/MM3 (4.0-11.0)
[2017-09-13 14:07] VITALS: RESP 18; O2SAT 98
--- NOTE | 2017-09-13 14:08 | RADRPT ---
EXAM DATE/TIME: 09/13/2017 13:49 [place] COMPARISON: No previous studies available for comparison. INDICATIONS : Left leg pain. Status post left hip replacement, 09/04/17. MEDICAL HISTORY : Hypercholesterolemia. Hypertension. UTI. SURGICAL HISTORY : Deviated septum. Left hip replacement. ENCOUNTER: Initial ACUITY: 1 week PAIN SCORE: 4/10 LOCATION: Left leg. TECHNIQUE: Venous ultrasound of the leg was performed from the inguinal ligament to the proximal calf. Real-dante e, color Doppler and spectral tracing, compression and augmentation techniques were used. FINDINGS: There is normal compressibility of the deep venous system from the inguinal region to the proximal ca lf. No echogenic clot is seen in the lumen of the common femoral, femoral, popliteal, and posterior tibial veins. There is a normal response of the venous system to proximal and distal augmentation an d respiration. CONCLUSION: Normal examination. Franklin Davenport MD on September 13, 2017 at 14:06 Board Certified Radiologist. This report was verified electronically.
[2017-09-13 14:11] LABS: APTT (PATIENT) 29.8 SEC (24.3-30.1); INTERNATIONAL NORMALIZED RATIO 0.9 RATIO; PROTHROMBIN TIME - PATIENT 10.1 SEC (9.8-11.6)
[2017-09-13 14:23] LABS: ANION GAP 7 MEQ/L (5-15); AST (GOT) 31 U/L (15-37); BLOOD UREA NITROGEN 10 MG/DL (7-18); CHLORIDE 104 MEQ/L (98-107); GLOMERULAR FILTRATION RATE 112 ML/MIN (>89); MAGNESIUM 1.9 MG/DL (1.5-2.5); POTASSIUM 3.5 MEQ/L (3.5-5.1); SODIUM (NA) 137 MEQ/L (136-145)
--- NOTE | 2017-09-13 14:25 | PD ---
HPI Chief Complaint: Edema Time Seen by Provider: 13:38 Travel History International Travel<30 days: No Contact w/Intl Traveler<30days: No Traveled to known affect area: No History of Present Illness HPI 52-year-old male that presents to the ED for evaluation of left hip pain as well as left leg swelling. Patient has had this for the past 2 days. Per patient he had surgery on the 04 September for a hip replacement. Patient has been doing well since after the surgery. He used to be on Lovenox and states compliance with this for about a week after having the surgery. He now takes aspirin. He states that he has not fallen anything extraneous. His been doing some physical therapy but denies any trauma. Per patient he is noted that the swelling on the left leg appears to be worsening. He is also noted some discoloration of the skin. He was concerning for blood clots. He had surgery by Dr. Orta. He has not seen Dr. Orta since the surgery. He also states is having some chills and sweats and his blood pressure has been higher than usual. He denies any chest pain or shortness of breath but states having some runny nose and cough. He states that he's been urinating more than usual. She denies any blood in the urine. No bowel movement issues. He states that his been taking his Lortab that was prescribed by Dr. Orta and actually was doing well with it making the pain 2 out of 10 but for the past 2 days the pain has increased and even the Lortab only brings it down to 6 out of 10. PFSH Past Medical History Arthritis: No Asthma: No Anxiety: No Depression: Yes Cancer: No Cardiovascular Problems: No High Cholesterol: Yes Chest Pain: No Cerebrovascular Accident: No Diabetes: No Diminished Hearing: No Endocrine: No Gastrointestinal Disorders: No Glaucoma: No Genitourinary: No Headaches: Yes Hepatitis: No Hiatal Hernia: No Hypertension: Yes Immune Disorder: No Kidney Stones: No Musculoskeletal: Yes Neurologic: No Psychiatric: No Respiratory: No Renal Failure: No Sickle Cell Disease: No Sleep Apnea: No Thyroid Disease: No Ulcer: No Past Surgical History Abdominal Surgery: Yes (gastric bypass, 2000, HERNIA REPAIR) AICD: No Cardiac Surgery: No Cholecystectomy: No Eye Surgery: Yes (LASIK) Joint Replacement: Yes (L hip) Oral Surgery: No Pacemaker: No Other Surgery: Yes (devated septum) Social History Alcohol Use: No (prior ETOH) Tobacco Use: No Substance Use: No Allergies-Medications (Allergen,Severity, Reaction): Coded Allergies: No Known Allergies (Verified Adverse Reaction, Unknown, 09/13/17) Reported Meds & Prescriptions Reported Meds & Active Scripts Active Walker with Front Wheels (Device) 1 Mis Mis Ea .ROUTE DIRECTED Commode 3-in-1 (Device) 1 Mis Mis Ea .ROUTE DIRECTED [place] (Hydrocodone-Acetaminophen) 7.5-325 mg Tab 1-2 Tab PO Q6H PRN Aspirin Low Dose (Aspirin) 81 Mg Chew 81 Mg CHEW BID 30 Days Reported Gabapentin 600 Mg Tab 600 Mg PO TID Trazodone (Trazodone HCl) 50 Mg Tab 50 Mg PO HS Prilosec (Omeprazole Magnesium) 20 Mg Tab 1 Tab PO DAILY Disulfiram 250 Mg Tab 250 Mg PO DAILY Atenolol 50 Mg Tab 50 Mg PO DAILY Sertraline (Sertraline HCl) 100 Mg Tab 100 Mg PO DAILY Gemfibrozil 600 Mg Tab 600 Mg PO DAILY Take 30 minutes prior to breakfast and dinner. Review of Systems Except as stated in HPI: all other systems reviewed are Neg Physical Exam Narrative GENERAL: SKIN: Warm and dry. HEAD: Atraumatic. Normocephalic. EYES: Pupils equal and round. No scleral icterus. No injection or drainage. ENT: No nasal bleeding or discharge. Mucous membranes pink and moist. Tongue is midline. No uvula deviation. TMs are clear with no sign of infection or perforation. Nostrils are patent bilaterally. No sinus tenderness. NECK: Trachea midline. No JVD. CARDIOVASCULAR: Regular rate and rhythm. No murmurs, S3, S4. RESPIRATORY: No accessory muscle use. Clear to auscultation. Breath sounds equal bilaterally. GASTROINTESTINAL: Abdomen soft, non-tender, nondistended. Hepatic and splenic margins not palpable. MUSCULOSKELETAL: Extremities without clubbing, cyanosis, or edema. No obvious deformities. Patient has a surgical scar on the left hip appears to be well- healed. Some Steri-Strips noted in the area. No erythema or mass. Patient does have some swelling noted in this area so hard to the touch but does not appear to be erythematous or purulent. Patient has 2+ pulses bilaterally. Some pain with range of motion of the left hip. NEUROLOGICAL: Awake and alert. No obvious cranial nerve deficits. Motor grossly within normal limits. Five out of 5 muscle strength in the arms and legs. Normal speech. PSYCHIATRIC: Appropriate mood and affect; insight and judgment normal. Data Data Last Documented VS Vital Signs Date Time Temp Pulse Resp B/P (MAP) Pulse Ox O2 Delivery O2 Flow Rate FiO2 09/13/17 14:42 68 18 145/87 (106) 100 Room Air 09/13/17 12:58 99.1 Orders Orders Complete Blood Count With Diff (09/13/17 13:43) Comprehensive Metabolic Panel (09/13/17 13:43) Prothrombin Time / Inr (Pt) (09/13/17 13:43) Act Partial Throm Time (Ptt) (09/13/17 13:43) Blood Culture (09/13/17 13:43) Urinalysis - C+S If Indicated (09/13/17 13:43) Magnesium (Mg) (09/13/17 13:43) Chest, Single Ap (09/13/17 13:43) Iv Access Insert/Monitor (09/13/17 13:43) Ecg Monitoring (09/13/17 13:43) Oximetry (09/13/17 13:43) Us Leg Venous Doppler (09/13/17 ) Hip, Uni(Ap&Lat) W Ap Pelvis (09/13/17 ) Lactic Acid (09/13/17 13:43) Influenzae A/B Antigen (09/13/17 13:46) Morphine Inj (Morphine Inj) (09/13/17 14:30) Ondansetron Inj (Zofran Inj) (09/13/17 14:30) Labs Laboratory Tests Test 09/13/17 13:40 09/13/17 14:13 White Blood Count 8.7 TH/MM3 Red Blood Count 3.49 MIL/MM3 Hemoglobin 10.5 GM/DL Hematocrit 31.6 % Mean Corpuscular Volume 90.5 FL Mean Corpuscular Hemoglobin 30.1 PG Mean Corpuscular Hemoglobin Concent 33.2 % Red Cell Distribution Width 13.2 % Platelet Count 342 TH/MM3 Mean Platelet Volume 6.9 FL Neutrophils (%) (Auto) 74.4 % Lymphocytes (%) (Auto) 15.9 % Monocytes (%) (Auto) 6.0 % Eosinophils (%) (Auto) 3.0 % Basophils (%) (Auto) 0.7 % Neutrophils # (Auto) 6.5 TH/MM3 Lymphocytes # (Auto) 1.4 TH/MM3 Monocytes # (Auto) 0.5 TH/MM3 Eosinophils # (Auto) 0.3 TH/MM3 Basophils # (Auto) 0.1 TH/MM3 CBC Comment DIFF FINAL Differential Comment Prothrombin Time 10.1 SEC Prothromb Time International Ratio 0.9 RATIO Activated Partial Thromboplast Time 29.8 SEC Blood Urea Nitrogen 10 MG/DL Creatinine 0.74 MG/DL Random Glucose 134 MG/DL Total Protein 6.7 GM/DL Albumin 2.9 GM/DL Calcium Level 8.7 MG/DL Magnesium Level 1.9 MG/DL Alkaline Phosphatase 72 U/L Aspartate Amino Transf (AST/SGOT) 31 U/L Alanine Aminotransferase (ALT/SGPT) 35 U/L Total Bilirubin 0.4 MG/DL Sodium Level 137 MEQ/L Potassium Level 3.5 MEQ/L Chloride Level 104 MEQ/L Carbon Dioxide Level 26.0 MEQ/L Anion Gap 7 MEQ/L Estimat Glomerular Filtration Rate 112 ML/MIN Lactic Acid Level 0.7 mmol/L Urine Color LIGHT-YELLOW Urine Turbidity CLEAR Urine pH 6.5 Urine Specific [place] 1.007 Urine Protein NEG mg/dL Urine Glucose (UA) NEG mg/dL Urine Ketones NEG mg/dL Urine Occult Blood NEG Urine Nitrite NEG Urine Bilirubin NEG Urine Urobilinogen LESS THAN 2.0 MG/DL Urine Leukocyte Esterase NEG Urine Squamous Epithelial Cells <1 /hpf Microscopic Urinalysis Comment CULT NOT INDICATED MDM Medical Decision Making Medical Screen Exam Complete: Yes Emergency Medical Condition: Yes Medical Record Reviewed: Yes Interpretation(s) CBC & BMP Diagram 09/13/17 13:40 Total Protein 6.7, Albumin 2.9 L, Calcium Level 8.7, Magnesium Level 1.9, Alkaline Phosphatase 72, Aspartate Amino Transf (AST/SGOT) 31, Alanine Aminotransferase (ALT/SGPT) 35, Total Bilirubin 0.4 Lactic acid within normal limits. Urine negative. Last Impressions Chest X-Ray 09/13/17 1343 Signed Impressions: Service Date/Time: Monday, September 13, 2017 14:29 - CONCLUSION: No acute cardiopulmonary abnormality is identified. Franklin Owen MD Lower Extremity Ultrasound 09/13/17 0000 Signed Impressions: Service Date/Time: Wednesday, September 13, 2017 13:49 - CONCLUSION: Normal examination. Franklin Davenport MD Hip and Pelvis X-Ray 09/13/17 0000 Signed Impressions: Service Date/Time: Wednesday, September 13, 2017 14:33 - CONCLUSION: And alignment, negative for fracture. Gabriel Garcia MD FACR Differential Diagnosis Hip pain versus DVT versus infection versus UTI versus pneumonia versus sepsis versus postsurgical complication Narrative Course 52-year-old male that presents to the ED for evaluation of left leg swelling and chills. Patient was properly examined and was found to have signs and symptoms concerning for DVT as well as possible infection. Labs and imaging were ordered. Labs and imaging showed no sign of acute disease. Patient was reassured. More broadly no sign of infection. Hip appears to be fine and this only swelling in it. Likely the source of his increased discomfort. This time I recommend follow-up with Dr. Orta. My attending Dr. Mckeon herself evaluated the patient and spoke with the patient and she agrees with plan. Patient was told to follow with Dr. Orta on Monday. Continue physical therapy. See ED worsening symptoms. Follow with PCP. Diagnosis Primary Impression: Hip pain, left Patient Instructions: General Instructions, Narcotic given in the ED Additional Instructions: Taking medications as prescribed. Your labs and imaging were essentially unremarkable here. No signs of infection or blood clots. Follow with Dr. Orta on Monday or earlier if needed to. See ED worsening symptoms. Med/Other Pt SpecificInfo: No Change to Meds Disposition: 01 DISCHARGE HOME Condition: Stable Mike Orta Sep 13, 2017 14:25
[2017-09-13 14:27] LABS: ALKALINE PHOSPHATASE 72 U/L (45-117); ALT (GPT) 35 U/L (12-78); TOTAL BILIRUBIN ADULT 0.4 MG/DL (0.2-1.0)
[2017-09-13] MEDS ORDERED: ONDANSETRON HCL 4 MG/2 ML VIAL IV PUSH ONE (14:30)
[2017-09-13] MEDS ORDERED: MORPHINE SULFATE 4 MG/ML INJ IV PUSH ONE (14:30)
[2017-09-13 14:42] VITALS: BP 145/87; PULSE 68; RESP 18; O2SAT 100
[2017-09-13 14:54] LABS: BLOOD, URINE NEG (NEG); GLUCOSE,URINE NEG (NEG); KETONE, URINE NEG (NEG); NITRITE,URINE NEG (NEG); PH, URINE 6.5 (5.0-8.5); SQUAMOUS EPITHELIAL CELL URINE <1 /hpf (0-5); URINE COLOR LIGHT-YELLOW (YELLW/STRAW)
[2017-09-13 14:55] LABS: COMMENT (UR) CULT NOT INDICATED; CULTURE IF INDICATED CULT NOT INDICATED
--- NOTE | 2017-09-13 15:01 | RADRPT ---
EXAM DATE/TIME: 09/13/2017 14:29 [facility] COMPARISON: No previous studies available for comparison. INDICATIONS : Cough. Patient complains of feeling hot and having chills. No chest pain. MEDICAL HISTORY : None. SURGICAL HISTORY : Left hip surgery 09/04/17. ENCOUNTER: Initial ACUITY: 1 week PAIN SCORE: 0/10 LOCATION: Bilateral chest FINDINGS: Single frontal view of the chest demonstrates a normal-sized cardiac silhouette. No effusion, consoli dation, or pneumothorax is visualized. The bones and soft tissues demonstrate no acute abnormality. CONCLUSION: No acute cardiopulmonary abnormality is identified. Franklin Owen MD on September 13, 2017 at 14:58 Board Certified Radiologist. This report was verified electronically.
--- NOTE | 2017-09-13 15:31 | RADRPT ---
EXAM DATE/TIME: 09/13/2017 14:33 [facility] COMPARISON: HIP LEFT (AP&LAT 2/3VWS) W AP PELVIS, September 04, 2017, 9:17. INDICATIONS : Left hip pain. Patient complains of hip pain, with left leg and foot bruising and swelling. MEDICAL HISTORY : None. SURGICAL HISTORY : Left hip surgery September 04, 2017 ENCOUNTER: Initial ACUITY: 1 week PAIN SCORE: 6/10 LOCATION: Left Hip. FINDINGS: Status post total hip on the left. Alignment is anatomic. Fracture is not appreciated. CONCLUSION: And alignment, negative for fracture. Gabriel Garcia MD FACR on September 13, 2017 at 15:30 Board Certified Radiologist. This report was verified electronically.
[2017-09-13 16:22] VITALS: BP 144/87
== END 2017-09-13 23:11 | disposition home or self-care (01) ==
LOC: NEPE 12:57
DX: M25.552 Pain in left hip (principal); R22.42 Localized swelling, mass and lump, left lower limb; R68.83 Chills (without fever); R61 Generalized hyperhidrosis; I10 Essential (primary) hypertension; R05 Cough; E78.00 Pure hypercholesterolemia, unspecified; Z98.890 Other specified postprocedural states; Z79.899 Other long term (current) drug therapy; Z86.59 Personal history of other mental and behavioral disorders; Z87.39 Personal history of other diseases of the musculoskeletal system and connective tissue
CPT/HCPCS: 71010; 73502; 80053; 81001; 83605; 83735; 85025; 85610; 85730; 87040; 93971; 96374; 96375; 99285; J2270; J2405